=== PATIENT | female | born 1960 | race Caucasian/White ===

== ENCOUNTER → 2018-02-11 | Outpatient (CLI) | payer BC | LOC: MC.RAD 07:20 | DX: Z12.31 Encounter for screening mammogram for malignant neoplasm of breast (principal) ==

== ENCOUNTER 2019-03-15 14:24 | Emergency (ER) | payer BC ==
[2005-05-08 06:10] VITALS: BP 150/88
[~2019-03-15] VITALS: Ht 154.9 cm; Wt 102.3 kg
[2019-03-15] MEDS ORDERED: LIPITOR 80MG80 MG PO (15:14)
[2019-03-15] MEDS ORDERED: ALLEGRA-D TABLE1 TAB PO (15:15)
[2019-03-15 15:39] LABS: BASO # 0.1 (0.0-0.2); BASO % 0.9 % (0.0-2.0); EOS # 0.4 (0.0-0.7); GRAN # 3.2 (1.4-6.5); GRAN % 42.2 % (42.2-75.2); HEMATOCRIT 38.5 % (37.0-47.0); HEMOGLOBIN 12.7 g/dl (12.5-16.0); LYMPH # 3.4 (1.2-3.4); LYMPH % 44.5 % (20.0-51.0); MEAN CELL VOLUME 97 fl (80.0-100.0); MEAN CORPUSCULAR HEMOGLOBIN 32 pg (27.0-31.0); MEAN CORPUSCULAR HGB CONC 33 g/dl (33.0-37.0); MONO # 0.6 (0.1-0.6); MONO % 7.3 % (1.7-9.3); PLATELET COUNT 195 K/mm3 (130-400); RED BLOOD COUNT 3.96 M/mm3 (4.10-5.30); REDCELL DISTRIBUTION WIDTH-CV 12.2 % (11.5-14.5)
[2019-03-15 15:44] LABS: COLLECTION METHOD CLEAN CATCH
[2019-03-15 15:49] LABS: MUCOUS Present /lpf; PH 6 (5-8); URINE APPEARANCE Hazy; URINE BACTERIA Rare /hpf; URINE BILIRUBIN Negative (NEGATIVE); URINE BLOOD Negative (NEGATIVE); URINE COLOR Yellow; URINE GLUCOSE Negative (NEGATIVE); URINE KETONE Negative (NEGATIVE); URINE LEUKOCYTE ESTERASE 1+ (NEGATIVE); URINE NITRATE Negative (NEGATIVE); URINE PROTEIN(semi-quant) Negative (NEGATIVE); URINE UROBILINOGEN Negative (NEGATIVE)
[2019-03-15 15:51] LABS: ALBUMIN 4.1 gm/dL (3.5-5.0); BILIRUBIN,TOTAL 0.4 mg/dL (0.0-1.0); C-REACTIVE PROTEIN 1.6 mg/dL (0.0-0.9); CALCIUM 9.3 mg/dL (8.4-10.2); CREATININE, serum 0.54 (0.52-1.25); POTASSIUM 3.8 mmol/L (3.4-5.0); TOTAL PROTEIN 7.6 gm/dL (6.4-8.2)
[2019-03-15] MEDS ORDERED: OMNICEF 300MG300 MG PO (16:05)
[2019-03-15 16:47] VITALS: BP 141/82; PULSE 64; TEMP 98.2
== END 2019-03-15 16:55 | disposition home or self-care (01) ==
LOC: COL.ER 14:24
PROVIDERS: Family Medicine
DX: N39.0 Urinary tract infection, site not specified (principal)
CPT/HCPCS: J0696; J1170; J2405; J7030

== ENCOUNTER 2019-04-28 08:20 | Day surgery (SDC) | payer BC ==
[2005-05-08 06:10] VITALS: BP 150/88
[~2019-04-28] VITALS: Ht 160 cm; Wt 102.3 kg
[~2019-04-28 08:20] MED LIST: ALLEGRA-D TABLE1 TAB PO; LIPITOR 80MG80 MG PO; OMNICEF 300MG300 MG PO
[2019-04-28 09:10] VITALS: BP 163/100; PULSE 73; TEMP 97.8
[2019-04-28] MEDS ORDERED: GLUCOPHAGE500 MG/TAB PO (10:00)
[2019-04-28] MEDS ORDERED: TYLENOL 8 HR PO (10:01)
[2019-04-28 10:55] VITALS: BP 139/76; PULSE 77; TEMP 97.3
--- NOTE | 2019-04-28 10:55 | NUR ---
Pt to [facility] via cart from [facility]. Pt awake and alert. Pt ambulates to recliner with stand by assistance. in room. Water, Jello and muffin given per pt request. Call light within reach.
[2019-04-28 11:10] VITALS: BP 124/84; PULSE 78
--- NOTE | 2019-04-28 11:10 | NUR ---
Pt continues to rest. Denies needs. Tolerating food and fluids without difficulties. WIll continue to monitor.
[2019-04-28 11:25] VITALS: BP 130/94; PULSE 78
--- NOTE | 2019-04-28 11:25 | NUR ---
Pt denies needs. Visiting with . Will continue to monitor. Call light within reach.
[2019-04-28 11:40] VITALS: BP 130/80; PULSE 64
--- NOTE | 2019-04-28 11:40 | NUR ---
Discharge instructions reviewed. Pt voices understanding. IV site discontinued with all parts intact. Pt up to dress. Call light within reach.
--- NOTE | 2019-04-28 12:00 | NUR ---
Pt escorted to private car via wheel chair. Pt accompanied home by her .
== END 2019-04-28 12:00 | disposition home or self-care (01) ==
LOC: SDCO 08:20
DX: Z12.11 Encounter for screening for malignant neoplasm of colon (principal); D12.2 Benign neoplasm of ascending colon; K57.30 Diverticulosis of large intestine without perforation or abscess without bleeding; E78.5 Hyperlipidemia, unspecified; K21.9 Gastro-esophageal reflux disease without esophagitis; C64.9 Malignant neoplasm of unspecified kidney, except renal pelvis; Z90.710 Acquired absence of both cervix and uterus; Z90.5 Acquired absence of kidney; Z88.5 Allergy status to narcotic agent
CPT/HCPCS: J2250; J2405; J3010; J7030